=== PATIENT | female | born 1960 | race Caucasian/White ===

== ENCOUNTER 2019-07-17 09:21 | Emergency (ER) | payer OTHER ==
--- OUTSIDE RECORDS SUMMARY | 2019-07-17 09:29 | XMS REPORT | Continuity of Care Document ---
:1960 External Reference #:[id number] Author Name Chidi Key M.D. (transmitted by agent of provider Lorraine Zelaya) Address [address] [place] [address] Care Team Providers Name Role Phone Patient's Choice Care Team Information Contact Assembler Unavailable Problems Description No Information Available Social History Type Date Description Comments Sex Unknown ETOH Use Rarely consumes alcohol Tobacco Use Start: Unknown Patient has never smoked Smoking Status Reviewed: 06/03/19 Patient has never smoked Exercise Type/Frequency Exercises regularly Allergies, Adverse Reactions, Alerts Description No Known Drug Allergies Medications Active Medications SIG Qnty Indications Ordering Provider Date Alendronate Sodium 1 by mouth weekly 1 Unknown 70mg hour before Tablets breakfast with a full glass of water sitting up Calcium Unknown Vitamin D3 Unknown Medications Administered in Office Medication SIG Qnty Indications Ordering Provider Date Depomedrol 40MG Chidi Key M.D. 06/03/2019 Injection Immunizations Description No Information Available Vital Signs Date Vital Result Comment 06/03/2019 8:16am Height 61 inches 5'1" Weight 118.00 lb Heart Rate 71 /min BP Systolic 122 mmHg BP Diastolic 76 mmHg Respiratory Rate 16 /min Body Temperature 97.6 F Pain Level 0 BMI (Body Mass Index) 22.3 kg/m2 05/06/2019 10:21am Height 61 inches 5'1" Weight 118.00 lb BP Systolic 116 mmHg BP Diastolic 78 mmHg Body Temperature 97.9 F Pain Level 0 BMI (Body Mass Index) 22.3 kg/m2 Results Description No Information Available Procedures Description No Information Available Medical Devices Description No Information Available Encounters Type Date Location Provider Dx Diagnosis Office Visit 05/06/2019 [facility] Chidi Key, M19.071 Primary 10:15a at [facility] osteoarthritis, right ankle and foot Office Visit 04/01/2019 [facility] Chidi Key, M67.471 Ganglion, right 8:00a at [facility] M25.571 Pain in right ankle and joints of right foot Assessments Date Code Description Provider 06/03/2019 M19.071 Primary osteoarthritis, right ankle and foot Chidi Key M.D. 06/03/2019 M67.471 Ganglion, right ankle and foot Chidi Key M.D. 05/06/2019 M19.071 Primary osteoarthritis, right ankle and foot Chidi Key M.D. 04/01/2019 M67.471 Ganglion, right ankle and foot Chidi Key M.D. 04/01/2019 M25.571 Pain in right ankle and joints of right foot Chidi Key M.D. Plan of Treatment Future Appointment(s):06/26/2019 8:15 am - Chidi Key M.D. at [facility] at [id number]/17/2019 8:00 am - Chidi Key M.D. at [facility] at [id number]/03/2019 - Chidi Key M.D.M19.071 Primary osteoarthritis, right ankle and footNew Xrays:Inj/Aspir, Small Joint/Bursa W/ US , Ordered: 06/03/19Follow up:2-3 [id number] Ganglion, right ankle and foot Functional Status Description No Information Available Mental Status Description No Information Available Referrals Description No Information Available
--- NOTE | 2019-07-17 11:38 | UC ---
Throat Pain/Nasal Ki HPI - HPI Summary HPI Summary: 58-year-old female presents with onset of low-grade fever and sore throat yesterday. Reports max temperature of 100.4 F. Symptoms associated with some malaise and fatigue. Did not receive her flu shot this year. Denies ear pain, dysphagia, nasal congestion, cough, chest pain, shortness of breath, abdominal pain, nausea, or vomiting. - History of Current Complaint Chief Complaint: UCRespiratory Stated Complaint: SORE THROAT Time Seen by Provider: 07/17/19 11:32 Hx Obtained From: Patient Pain Intensity: 9 - Allergies/Home Medications Allergies/Adverse Reactions: Allergies Allergy/AdvReac Type Severity Reaction Status Date / Time docetaxel [From Taxotere] Allergy See Comment Verified 07/17/19 09:58 Home Medications: Home Medications Alendronate Sodium [Fosamax-] 1 tab PO DAILY 07/17/19 [History Confirmed ] Calcium Carbonate [Calcium] 1 tab PO DAILY 07/17/19 [History Confirmed 07/17/19] Cholecalciferol (Vitamin D3) [Vitamin D3] 5,000 tab PO ONCE 07/17/19 [History Confirmed 07/17/19] Menthol Cough Drops* [Vicks Cough Drops*] 1 tab PO ONCE PRN 07/17/19 [History Confirmed 07/17/19] PMH/Surg Hx/FS Hx/Imm Hx Previously Healthy: Yes - Surgical History Surgical History: Yes Surgery Procedure, Year, and Place: left and right mastectomy. appendectomy - Family History Known Family History: Positive: Non-Contributory - Social History Occupation: Retired Lives: Alone Alcohol Use: Rare Substance Use Type: None Smoking Status (MU): Never Smoked Tobacco Review of Systems All Other Systems Reviewed And Are Negative: Yes Constitutional: Positive: Fever, Fatigue Skin: Negative: Rash Eyes: Negative: Drainage, Eye Redness ENT: Positive: Sore Throat. Negative: Ear Ache, Nasal Discharge, Sinus Congestion, Sinus Pain/Tenderness Respiratory: Negative: Shortness Of Breath, Cough Cardiovascular: Negative: Palpitations, Chest Pain Gastrointestinal: Negative: Abdominal Pain, Vomiting, Nausea Genitourinary: Positive: Negative Musculoskeletal: Positive: Negative Neurological: Positive: Negative Is Patient Immunocompromised?: No Physical Exam - Summary Physical Exam Summary: GENERAL APPEARANCE: Well developed, well nourished, alert and cooperative, and appears to be in no acute distress. EYES: Conjunctiva clear. No drainage. EARS: External auditory canals and tympanic membranes clear, hearing grossly intact. NOSE: No nasal discharge. THROAT: Mild pharyngeal erythema. No tonsilar inflammation, swelling, exudate, or lesions. Uvula midline. NECK: Neck supple, non-tender without lymphadenopathy. CARDIAC: Normal S1 and S2. No S3, S4 or murmurs. Rhythm is regular. There is no peripheral edema, cyanosis or pallor. Extremities are warm and well perfused. Capillary refill is less than 2 seconds. Peripheral pulses intact. LUNGS: Clear to auscultation without rales, rhonchi, wheezing or diminished breath sounds. ABDOMEN: Positive bowel sounds. Soft, nondistended, nontender. No guarding or rebound. No masses or hepatosplenomegally. MUSKULOSKELETAL: ROM intact to all extremities. No joint erythema or tenderness. Normal muscular development. Normal gait. SKIN: Skin normal color, texture and turgor with no lesions or eruptions. Triage Information Reviewed: Yes Vital Signs: Initial Vital Signs Temp 98.9 F 07/17/19 09:54 Pulse 74 07/17/19 09:54 Resp 18 07/17/19 09:54 BP 125/69 07/17/19 09:54 Pulse Ox 99 07/17/19 09:54 Vital Signs Reviewed: Yes Throat Pain/Nasal Course/Dx - Course Course Of Treatment: 58-year-old female presents with onset of low-grade fever and sore throat yesterday. Reports max temperature of 100.4 F. Symptoms associated with some malaise and fatigue. Did not receive her flu shot this year. Denies ear pain, dysphagia, nasal congestion, cough, chest pain, shortness of breath, abdominal pain, nausea, or vomiting. Afebrile. Vital signs stable. Patient and some mild pharyngeal erythema without tonsillar swelling or exudate, no cervical lymphadenopathy, and otherwise unremarkable exam. Rapid strep test was negative. Rapid flu test was negative. Reviewed results with the patient. Recommending symptomatically treatment for a viral pharyngitis. She is to follow-up with her primary care provider in 5-7 days if symptoms do not improve. Anticipatory guidance and warning symptoms are reviewed with the patient. Verbalizes understanding and agrees with plan of care. - Differential Dx/Diagnosis Differential Diagnosis/HQI/PQRI: Mononucleosis, Peritonsillar Abscess, Pharyngitis, Tonsillitis, URI Provider Diagnosis: Viral pharyngitis Discharge ED - Sign-Out/Discharge Documenting (check all that apply): Patient Departure All imaging exams completed and their final reports reviewed: No Studies - Discharge Plan Condition: Stable Disposition: HOME Patient Education Materials: Pharyngitis (ED) Referrals: No Primary Care Phys,NOPCP [Primary Care Provider] - Additional Instructions: Your rapid strep test and rapid flu test performed in the clinic today were negative. Your symptoms are likely from a viral infection. Viral infections do not respond to antibiotics and are limited to the treatment of symptoms. Viral infections typically run their course in 7-10 days. Drink plenty of fluids to avoid dehydration especially if you are running any fever. Use salt water gargles several times a day. Take over the counter acetaminophen (Tylenol) or ibuprofen (Advil, Motrin) according to directions as needed for pain or fever. You may also use Chloraseptic spray or Cepacol lonzenges according to directions which contain a numbing medication and can provide some temporary relief from your sore throat. Return here or follow up with your primary care provider in 7 days if symptoms persist. Seek immediate medical attention in the emergency room if you have fever greater than 100.5 F despite taking acetaminophen or ibuprofen, are unable to swallow or develop drooling, are unable to open your mouth fully, are unable to eat or drink, have pain that is not relieved with over the counter pain medication, or have any difficulty breathing. - Billing Disposition and Condition Condition: STABLE Disposition: Home
[2019-07-17 12:04] VITALS: BP 124/63
[2019-07-17 12:16] LABS: Influenza A Molecular NEGATIVE (Negative); Influenza B Molecular NEGATIVE (Negative)
== END 2019-07-17 12:38 | disposition home or self-care (01) ==
LOC: UCEAST 09:21
DX: J02.9 Acute pharyngitis, unspecified (principal); R53.83 Other fatigue; R53.81 Other malaise; Z88.8 Allergy status to other drugs, medicaments and biological substances
CPT/HCPCS: 87651; 99211; G0463

== ENCOUNTER 2019-07-18 21:31 | Emergency (ER) | payer OTHER ==
--- NOTE | 2019-07-18 21:34 | UC ---
Throat Pain/Nasal Ki HPI - HPI Summary HPI Summary: 58 yo female presents with sore throat. She was seen yesterday for the same complaint and POC strep and flu were negative. She was dx'd with a viral illness and advised to try supportive care. She is here today requesting another strep test as her throat still hurts. She has not been taking ibuprofen or using supportive care recommended yesterday. Temp has been 99F. She is eating , drinking, and tolerating po well. Denies sinus symptoms, cough, rash, abdominal pain, n/v - History of Current Complaint Chief Complaint: UCRespiratory Stated Complaint: THROAT COMPLAINT Time Seen by Provider: 07/18/19 21:34 Hx Obtained From: Patient Onset/Duration: Sudden Onset Severity: Severe Pain Intensity: 10 Pain Scale Used: 0-10 Numeric - Allergies/Home Medications Allergies/Adverse Reactions: Allergies Allergy/AdvReac Type Severity Reaction Status Date / Time docetaxel [From Taxotere] Allergy See Comment Verified 07/18/19 21:37 Home Medications: Home Medications Ibuprofen 600 mg PO ONCE 07/18/19 [History Confirmed 07/18/19] PMH/Surg Hx/FS Hx/Imm Hx - Additional Past Medical History Additional PMH: Osteoporosis - Surgical History Surgical History: Yes Surgery Procedure, Year, and Place: left and right mastectomy. appendectomy - Family History Known Family History: Positive: Non-Contributory - Social History Lives: With Family Alcohol Use: Rare Substance Use Type: None Smoking Status (MU): Never Smoked Tobacco Review of Systems All Other Systems Reviewed And Are Negative: No Constitutional: Positive: Negative Skin: Positive: Negative Eyes: Positive: Negative ENT: Positive: Sore Throat Respiratory: Positive: Negative Cardiovascular: Positive: Negative Neurological: Positive: Negative Psychological: Positive: Negative Physical Exam - Summary Physical Exam Summary: GENERAL: NAD. WDWN. No pain distress. SKIN: No rashes, sores, lesions, or open wounds. HEENT: Head: AT/NC Eyes: EOM intact. Conjunctiva clear without inflammation or discharge. Ears: Hearing grossly normal. TMs intact, no bulging, erythema, or edema. Nose: Nasal mucosa pink and moist. NTTP maxillary and frontal sinus. Throat: Posterior oropharynx with mild erythema. No tonsillar enlargement or exudates. Uvula midline. NECK: Supple. Nontender. No lymphadenopathy. CHEST: CTAB. No accessory muscle use. Breathing comfortably and in no distress. CV: RRR. Pulses intact. Cap refill <2seconds NEURO: Alert. PSYCH: Age appropriate behavior. Triage Information Reviewed: Yes Vital Signs: Vital Signs: Temp Pulse Resp BP Pulse Ox 98.3 F 75 18 139/71 100 07/18/19 21:34 07/18/19 21:34 07/18/19 21:34 07/18/19 21:34 07/18/19 21:34 Laboratory Tests 07/18/19 21:44 Group A Strep Rapid Negative Vital Signs Reviewed: Yes Throat Pain/Nasal Course/Dx - Course Course Of Treatment: POC strep negative. Exam WNL Afebrile. Agree with viral illness as dx'd yesterday. - Differential Dx/Diagnosis Provider Diagnosis: Pharyngitis Discharge ED - Sign-Out/Discharge Documenting (check all that apply): Patient Departure All imaging exams completed and their final reports reviewed: No Studies - Discharge Plan Condition: Stable Disposition: HOME Patient Education Materials: Viral Syndrome (ED) Referrals: No Primary Care Phys,NOPCP [Primary Care Provider] - [facility] [Outside] - As Soon As Possible Additional Instructions: Your rapid strep test was negative again today. Your symptoms are likely from a viral infection. Viral infections do not respond to antibiotics and are limited to the treatment of symptoms. Viral infections typically run their course in 7-10 days. Drink plenty of fluids to avoid dehydration especially if you are running any fever. Use salt water gargles several times a day. Take over the counter acetaminophen (Tylenol) or ibuprofen (Advil, Motrin) according to directions as needed for pain or fever. You may also use Chloraseptic spray or Cepacol lonzenges according to directions which contain a numbing medication and can provide some temporary relief from your sore throat. Return here or follow up with your primary care provider in 7 days if symptoms persist. Seek immediate medical attention in the emergency room if you have fever greater than 100.5 F despite taking acetaminophen or ibuprofen, are unable to swallow or develop drooling, are unable to open your mouth fully, are unable to eat or drink, have pain that is not relieved with over the counter pain medication, or have any difficulty breathing. - Billing Disposition and Condition Condition: STABLE Disposition: Home
[2019-07-18 21:37] VITALS: BP 139/71
== END 2019-07-18 22:02 | disposition home or self-care (01) ==
LOC: UCEAST 21:31
DX: J02.9 Acute pharyngitis, unspecified (principal); Z88.8 Allergy status to other drugs, medicaments and biological substances; Z90.13 Acquired absence of bilateral breasts and nipples
CPT/HCPCS: 87651; 99211; G0463

== ENCOUNTER 2019-07-22 20:57 | Emergency (ER) | payer OTHER ==
[2019-07-22 21:10] VITALS: BP 133/78
[2019-07-22] MEDS ORDERED: Amoxicillin PO (*) 500 MG CAP PO ONE ×2 (21:26→21:27)
--- NOTE | 2019-07-22 21:28 | UC ---
Throat Pain/Nasal Ki HPI - HPI Summary HPI Summary: 58-year-old woman comes in with a chief complaint of sore throat for 7 days. She's had negative strep test on the second and third of July 2019. Continues to have sore throat with pain worse on the left. It hurts to swallow. Minimal rhinorrhea. Minimal postnasal drip. Has been able eat and drink. No complaint of shortness of breath or chest congestion. Patient's temperature has been somewhat variable. Patient measured a temperature of 99.9 at home this evening. - History of Current Complaint Chief Complaint: UCGeneralIllness Stated Complaint: RECHECK THROAT COMPLAINT Time Seen by Provider: 07/22/19 21:03 Pain Intensity: 10 - Allergies/Home Medications Allergies/Adverse Reactions: Allergies Allergy/AdvReac Type Severity Reaction Status Date / Time docetaxel [From Taxotere] Allergy See Comment Verified 07/22/19 21:02 PMH/Surg Hx/FS Hx/Imm Hx Previously Healthy: Yes - Surgical History Surgical History: Yes Surgery Procedure, Year, and Place: left and right mastectomy. appendectomy - Family History Known Family History: Positive: Non-Contributory - Social History Alcohol Use: None Substance Use Type: None Smoking Status (MU): Never Smoked Tobacco Review of Systems All Other Systems Reviewed And Are Negative: Yes Constitutional: Positive: Other - SEE HPI Skin: Positive: Negative Eyes: Positive: Negative ENT: Positive: Sore Throat, Nasal Discharge Respiratory: Positive: Negative Cardiovascular: Positive: Negative Gastrointestinal: Positive: Negative Motor: Positive: Negative Neurovascular: Positive: Negative Musculoskeletal: Positive: Negative Neurological: Positive: Negative Psychological: Positive: Negative Is Patient Immunocompromised?: No Physical Exam Triage Information Reviewed: Yes Appearance: Well-Appearing, No Pain Distress, Well-Nourished Vital Signs: Initial Vital Signs Temp 98.3 F 07/22/19 21:04 Pulse 65 07/22/19 21:04 Resp 18 07/22/19 21:04 BP 133/78 07/22/19 21:04 Pulse Ox 99 07/22/19 21:04 Vital Signs Reviewed: Yes Eye Exam: Normal Eyes: Positive: Conjunctiva Clear ENT: Positive: Pharyngeal erythema, TMs normal, Uvula midline, Other - Oral pharynx is open. I do not appreciate any evidence of a peritonsillar abscess at this time. Neck: Positive: Supple Respiratory: Positive: Lungs clear, Normal breath sounds, No respiratory distress Cardiovascular: Positive: RRR Musculoskeletal: Positive: Strength Intact, ROM Intact Neurological: Positive: Alert, Muscle Tone Normal Psychological: Positive: Age Appropriate Behavior Skin Exam: Normal Throat Pain/Nasal Course/Dx - Course Course Of Treatment: DISCUSSED VIRAL VERSES BACTERIAL INFECTIONS AND THE ROLE OF ANTIBIOTICS. THE PATIENT PREFERS TO BE ON ANTIBIOTICS AT THIS TIME. - Differential Dx/Diagnosis Provider Diagnosis: Pharyngitis Discharge ED - Sign-Out/Discharge Documenting (check all that apply): Patient Departure All imaging exams completed and their final reports reviewed: No Studies - Discharge Plan Condition: Stable Disposition: HOME Prescriptions: Amoxicillin PO (*) [Amoxicillin 500 MG CAP*] 500 mg PO TID #28 cap Patient Education Materials: Pharyngitis (ED) Referrals: [facility] [Outside] Additional Instructions: FOLLOW UP WITH YOUR DOCTOR IF NOT COMPLETELY IMPROVED. GET REEVALUATED SOONER IF NOT IMPROVED OR WORSE OR ANY QUESTIONS OR CONCERNS. - Billing Disposition and Condition Condition: STABLE Disposition: Home
== END 2019-07-22 21:45 | disposition home or self-care (01) ==
LOC: UCEAST 20:57
DX: J02.9 Acute pharyngitis, unspecified (principal); Z88.8 Allergy status to other drugs, medicaments and biological substances
CPT/HCPCS: 87070; 99212; A9270-GY; G0463